=== PATIENT | male | born 1990 | race Caucasian/White ===

== ENCOUNTER 2020-08-02 08:36 | Emergency (ER) | payer OTHER ==
[2020-08-02 08:49] VITALS: BP 142/64; PULSE 56; TEMP 98; BMI 23.6
== END 2020-08-02 09:53 | disposition home or self-care (01) ==
LOC: JER 08:36
DX: S63.602A Unspecified sprain of left thumb, initial encounter (principal)
CPT/HCPCS: 73130-TC-LT-FY; 99283-25

== ENCOUNTER 2020-12-10 18:42 | Emergency (ER) | payer OTHER ==
[2020-12-10 18:58] VITALS: BP 102/63; PULSE 75; TEMP 99; BMI 22.2
[2020-12-10] MEDS ORDERED: IBUPROFEN 600 MG TABLET (FP) PO ONE ×2 (20:27→20:33)
== END 2020-12-10 20:54 | disposition home or self-care (01) ==
LOC: JERFT 18:42
DX: G57.61 Lesion of plantar nerve, right lower limb (principal)
CPT/HCPCS: 99283-25

== ENCOUNTER 2021-02-22 04:51 | Day surgery (SDC) | payer OTHER ==
[2021-02-18 13:24] VITALS: BMI 21.5
[2021-02-22 08:52] LABS: HEMATOCRIT 46.5 % (35.4-49); HEMOGLOBIN 15.8 GM/dL (11.7-16.9); MCH 28.3 pg (25.7-33.7); MEAN CELL VOLUME 83.2 fl (80-96); PLATELET COUNT 197 10^3/uL (134-434); RBC 5.58 M/mm3 (4.00-5.60); RDW 13.4 % (11.9-15.9); WHITE BLOOD COUNT 7.4 K/mm3 (4.0-10.0)
[2021-02-22 09:18] LABS: ALBUMIN 4.1 g/dl (3.4-5.0); BLOOD UREA NITROGEN 15.6 mg/dL (7-18)
[2021-02-22 09:23] LABS: BILIRUBIN,TOTAL 0.6 mg/dL (0.2-1)
[2021-02-22 09:24] LABS: CREATININE 1.1 mg/dL (0.55-1.3); TOT PROT 7.6 g/dl (6.4-8.2)
[2021-02-22] MEDS ORDERED: LIDOCAINE HCL 1%, 10 MG/ML (20ML VIAL) ONE (09:25)
[2021-02-22] MEDS ORDERED: BUPIVACAINE HCL/PF 0.5% (5MG/ML) 10 ML VIAL ONE (09:25)
[2021-02-22] MEDS ORDERED: PROPOFOL 20 ML ONE (09:42)
[2021-02-22] MEDS ORDERED: MIDAZOLAM HCL 2 MG/2 ML SINGLE DOSE VIAL ONE ×2 (09:42)
[2021-02-22] MEDS ORDERED: LIDOCAINE HCL/PF 2% SDV 5ML VIAL ONE (09:43)
[2021-02-22] MEDS ORDERED: DEXAMETHASONE SOD PHOSPHATE 4 MG/1 ML VIAL ONE (09:51)
[2021-02-22] MEDS ORDERED: ceFAZolin SODIUM 1 GM VIAL IVPB ONE (10:06)
[2021-02-22] MEDS ORDERED: ceFAZolin SODIUM 1 GM VIAL ONE (10:07)
[2021-02-22] MEDS ORDERED: LIDOCAINE HCL 1%, 10 MG/ML (20ML VIAL) NR ONE (10:21)
[2021-02-22] MEDS ORDERED: BUPIVACAINE HCL/PF 0.5% (5MG/ML) 10 ML VIAL IJ ONE (10:21)
[2021-02-22] MEDS ORDERED: GENTAMICIN SO4 80 MG/2 ML VIAL ONE (10:26)
[2021-02-22] MEDS ORDERED: ALBUTEROL SO4 0.083% IH SOL 2.5 MG/3 ML VIAL.NEB. NEB ONE (10:53)
[2021-02-22] MEDS ORDERED: ACETAMINOPHEN 325 MG TABLET (FP) ONE (11:40)
[2021-02-22] MEDS ORDERED: ACETAMINOPHEN 325 MG TABLET (FP) PO ONE (11:45)
[2021-02-22 12:29] VITALS: BP 107/56; PULSE 60; TEMP 98.7
== END 2021-02-22 12:10 | disposition home or self-care (01) ==
LOC: JASU-SURG 04:51
PROVIDERS: ATTEND Podiatrist
PROC: 0HBMXZZ Excision of Right Foot Skin, External Approach (ICD-10-PCS; principal; 2021-02-22 09:30)
DX: L72.0 Epidermal cyst (principal)
CPT/HCPCS: 36415; 80053; 85027; 87070; 87205; 88307-TC